=== PATIENT | female | born 1955 | race African-American/Black ===

== ENCOUNTER 2021-10-16 06:10 | Day surgery (SDC) | payer OTHER ==
[2021-10-14 09:21] VITALS: BMI 29.2
[2021-10-16] MEDS ORDERED: BUPIVACAINE HCL 100 ML ONE (07:25)
[2021-10-16] MEDS ORDERED: LIDOCAINE HCL 1%, 10 MG/ML (20ML VIAL) ONE (07:25)
[2021-10-16] MEDS ORDERED: SUCCINYLCHOLINE CHLORIDE 200 MG/10 ML SYRINGE ONE (07:44)
[2021-10-16] MEDS ORDERED: ONDANSETRON 4 MG/2 ML VIAL ONE (07:44)
[2021-10-16] MEDS ORDERED: PROPOFOL 20 ML ONE ×2 (07:44)
[2021-10-16] MEDS ORDERED: LIDOCAINE HCL 2% JELLY (5 ML/TUBE) ONE (07:44)
[2021-10-16] MEDS ORDERED: LIDOCAINE HCL 2% 100 MG/5 ML DISP.SYRIN ONE (07:44)
[2021-10-16] MEDS ORDERED: KETOROLAC TROMETHAMINE 30 MG/1 ML VIAL ONE (07:44)
[2021-10-16] MEDS ORDERED: DEXAMETHASONE SOD PHOSPHATE 4 MG/1 ML VIAL ONE (07:44)
[2021-10-16] MEDS ORDERED: ceFAZolin SODIUM 1 GM VIAL ONE (07:45)
[2021-10-16] MEDS ORDERED: MIDAZOLAM HCL 2 MG/2 ML SINGLE DOSE VIAL ONE (07:45)
[2021-10-16 10:26] VITALS: TEMP 97.5
[2021-10-16 10:34] VITALS: BP 119/58; PULSE 62
== END 2021-10-16 10:05 | disposition home or self-care (01) ==
LOC: FASU 06:10
PROVIDERS: ATTEND Orthopaedic Surgery
PROC: 0LB80ZZ Excision of Left Hand Tendon, Open Approach (ICD-10-PCS; 2021-10-16)
PROC: 01N50ZZ Release Median Nerve, Open Approach (ICD-10-PCS; principal; 2021-10-16 08:15)
DX: G56.02 Carpal tunnel syndrome, left upper limb (principal); M65.842 Other synovitis and tenosynovitis, left hand
CPT/HCPCS: 82962; 88304-TC

== ENCOUNTER 2023-01-25 21:57 | Emergency (ER) | payer OTHER ==
[2023-01-25 22:08] VITALS: BP 183/74; PULSE 72; RESP 18; TEMP 97.6; BMI 28.3
[2023-01-26 00:53] LABS: BASO % 0.5 % (0-2.0); EOS % 1.1 % (0-4.5); HEMOGLOBIN 13.1 GM/dL (10.7-15.3); LYMPH % 40.7 % (8-40); MCH 27.3 pg (25.7-33.7); MCHC 33.5 g/dl (32.0-36.0); MEAN CELL VOLUME 81.3 fl (80-96); MEAN PLT VOLUME 9.1 fl (7.5-11.1); MONO % 9.2 % (3.8-10.2); NEUT % 48.5 % (42.8-82.8); PLATELET COUNT 246 10^3/uL (134-434); RDW 15.9 % (11.6-15.6)
[2023-01-26 01:00] LABS: INR 1.12 (0.83-1.09)
[2023-01-26 01:02] LABS: ACTIVATED PTT 34.3 SECONDS (25.2-36.5)
[2023-01-26 01:11] LABS: POTASSIUM 4.3 mmol/L (3.5-5.1)
[2023-01-26 01:13] LABS: CALCIUM 9.4 mg/dL (8.5-10.1)
[2023-01-26 01:14] LABS: ALBUMIN 3.7 g/dl (3.4-5.0); BLOOD UREA NITROGEN 14.9 mg/dL (7-18)
[2023-01-26 01:17] LABS: CREATININE 0.8 mg/dL (0.55-1.3)
[2023-01-26 01:19] LABS: BILIRUBIN,TOTAL 0.3 mg/dL (0.2-1); TOT PROT 7.1 g/dl (6.4-8.2)
== END 2023-01-26 01:51 | disposition left against medical advice (07) ==
LOC: JER 21:57
DX: R04.0 Epistaxis (principal); R07.9 Chest pain, unspecified
CPT/HCPCS: 36415; 71046-TC-FY; 80053; 82550; 84484; 85025; 85610; 85730; 93005; 93010; 99285-25